=== PATIENT | male | born 1955 | race Caucasian/White ===

== ENCOUNTER → 2019-04-09 | Outpatient (CLI) | payer MEDICARE ==
--- NOTE | 2019-04-16 18:01 | Polysomnography ---
STUDY: INTERPRETATION of CPAP TITRATION POLYSOMNOGRAPHY. DATE OF STUDY: 04/09/2019 REFERRING PHYSICIAN: Koby Rubalcava MD INTERPRETING PHYSICIAN: Koby Rubalcava MD IMPRESSIONS: 1. Significant response to CPAP at 14 cm of water pressure, which resulted in significant reduction of respiratory distress index (RDI). 2. Oxygen desaturations improved with CPAP therapy. RECOMMENDATIONS: 1. CPAP pressure at 14 cm of water pressure with heated humidifier. 2. Avoid consumption of alcohol or sedatives before bedtime. 3. Weight reduction to ideal body weight. 4. Advise the patient that excessive daytime sleepiness could pose a danger to the patient and others while driving or operating heavy machinery, and to use caution until symptoms are treated and improved. 5. The patient to follow up with physician to discuss results of the study. Koby Rubalcava MD JKY/MODL /[id number] MTDD
== END ==
LOC: SLEEP 19:47
PROVIDERS: ATTEND Otolaryngology
DX: G47.33 Obstructive sleep apnea (adult) (pediatric) (principal)
CPT/HCPCS: 95811

== ENCOUNTER 2021-04-04 12:35 | Emergency (ER) | payer MEDICARE, OTHER ==
[~2021-04-04] VITALS: Ht 167.6 cm; Wt 74.8 kg
[2021-04-04 12:54] LABS: BASOPHILS # (AUTO) 0.1 (0.0-0.1); BASOPHILS % 0.9 % (0.0-1.0); EOSINOPHILS # (AUTO) 0.4 (0.0-0.4); EOSINOPHILS % 5.8 % (0.0-6.0); HEMOGLOBIN 15.4 g/dL (14.0-18.0); LYMPHOCYTES # (AUTO) 1.9 (1.0-3.2); LYMPHOCYTES % 24.6 % (18.0-39.1); MEAN CORPUSCULAR HEMOGLOBIN 31.7 pg (28-32); MEAN CORPUSCULAR HGB CONC 33.5 g/dL (31-35); MEAN CORPUSCULAR VOLUME 94.7 fL (81-99); MONOCYTES # (AUTO) 0.9 (0.2-0.8); MONOCYTES % 11.2 % (4.4-11.3); NEUTROPHILS # (AUTO) 4.3 (2.1-6.9); NEUTROPHILS % 56.5 % (38.7-80.0); PLATELET COUNT 293 x10e3/uL (140-360); RED BLOOD COUNT 4.86 x10e6/uL (4.3-5.7); RED CELL DISTRIBUTION WIDTH 13.2 % (11.7-14.4)
[2021-04-04] MEDS ORDERED: ASPIRIN 81 MG CHEW TAB PO ONE (13:00)
[2021-04-04 13:19] LABS: ALBUMIN 4.1 g/dL (3.5-5.0); ALBUMIN/GLOBULIN RATIO 1.3 (0.8-2.0); CALCIUM 9.2 mg/dL (8.4-10.2); CREATININE, SERUM 1.02 mg/dL (0.72-1.25)
[2021-04-04 13:26] LABS: CREATINE KINASE MB 0.7 ng/mL (0-5.0)
[2021-04-04 16:15] VITALS: BP 137/77
== END 2021-04-04 16:23 | disposition home or self-care (01) ==
LOC: ER 12:55
DX: R05 Cough (principal); J18.9 Pneumonia, unspecified organism; R94.31 Abnormal electrocardiogram [ECG] [EKG]
CPT/HCPCS: 36415; 71045; 80053; 82550; 82553; 84484; 85025; 99284; U0002

== ENCOUNTER → 2021-08-26 | Day surgery (SDC) | payer MEDICARE, OTHER ==
[2021-08-24 08:50] LABS: BASOPHILS # (AUTO) 0.1 (0.0-0.1); EOSINOPHILS # (AUTO) 0.4 (0.0-0.4); EOSINOPHILS % 4.5 % (0.0-6.0); HEMATOCRIT 44.5 % (38.2-49.6); HEMOGLOBIN 14.6 g/dL (14.0-18.0); LYMPHOCYTES # (AUTO) 2.1 (1.0-3.2); LYMPHOCYTES % 25.4 % (18.0-39.1); MEAN CORPUSCULAR HEMOGLOBIN 31.6 pg (28-32); MEAN CORPUSCULAR HGB CONC 32.8 g/dL (31-35); MEAN CORPUSCULAR VOLUME 96.3 fL (81-99); MONOCYTES # (AUTO) 0.7 (0.2-0.8); MONOCYTES % 8.1 % (4.4-11.3); PLATELET COUNT 291 x10e3/uL (140-360); RED BLOOD COUNT 4.62 x10e6/uL (4.3-5.7); RED CELL DISTRIBUTION WIDTH 12.2 % (11.7-14.4)
[~2021-08-26] MED LIST: BUPIVACAINE HCL 0.5% INJ 30 ML VIAL INJ ONE; DEXAMETHASONE SOD PHOS INJ 4 MG/ML SDV ONE; EPHEDRINE SULFATE INJ 50 MG/ML VIAL ONE; FENTANYL CITRATE/PF 100MCG/2 ML INJ ONE; GLYCOPYRROLATE INJ 0.2 MG/ML VIAL ONE; KETOROLAC TROMETHAMINE 30 MG/ML VIAL ONE; LIDOCAINE HCL 2% JELLY 5 ML TUBE ONE; LIDOCAINE HCL 2% LOCAL INJ 5 ML SDV VIAL INJ ONE; MIDAZOLAM HCL 2 MG/2 ML VIAL ONE; NEOSTIGMINE 1 MG/ML 10ML VIAL ONE; ONDANSETRON HCL INJ 2MG/ML 2ML 2 MG/ML VIAL ONE; POVIDONE IODINE 0.05% 0.05 % ML PO ONE; PROPOFOL IV EMULSION 10 MG/ML 20 ML VIAL ONE; ROCURONIUM BROMIDE 10 MG/ML 5ML VIAL IV ONE; SEVOFLURANE INHAL SOLN 250 ML PEN BTL ONE
[2021-08-26 08:40] VITALS: BP 139/77
== END | disposition home or self-care (01) ==
LOC: OR 05:20
PROVIDERS: ATTEND Podiatrist Foot & Ankle Surgery
DX: S86.012A Strain of left Achilles tendon, initial encounter (principal); G47.33 Obstructive sleep apnea (adult) (pediatric); R00.1 Bradycardia, unspecified; X58.XXXA Exposure to other specified factors, initial encounter; Z88.6 Allergy status to analgesic agent; Z01.810 Encounter for preprocedural cardiovascular examination; Z01.812 Encounter for preprocedural laboratory examination; Z01.818 Encounter for other preprocedural examination; Z20.822 Contact with and (suspected) exposure to COVID-19; Z86.16 Personal history of COVID-19
CPT/HCPCS: 36415; 71046; 85025; 93005; J0690; J1100; J1885; J2001; J2250; J2405; J2710; J3010; U0002

== ENCOUNTER 2021-11-18 07:58 | Outpatient (RCR) | payer OTHER | END 2021-11-20 | LOC: PT 07:58 | PROVIDERS: ATTEND Podiatrist Foot & Ankle Surgery | DX: S86.012A Strain of left Achilles tendon, initial encounter (principal) ==

== ENCOUNTER → 2021-12-21 | Outpatient (RCR) | payer OTHER | LOC: PT 11-22 06:32 | PROVIDERS: ATTEND Podiatrist Foot & Ankle Surgery | DX: S86.012A Strain of left Achilles tendon, initial encounter (principal) | CPT/HCPCS: 97139 ==

== ENCOUNTER 2022-03-29 07:56 | Observation (INO) | payer MEDICARE, OTHER ==
[~2022-03-29] VITALS: Ht 167.6 cm; Wt 74.8 kg
[~2022-03-29 07:56] MED LIST changes: -BUPIVACAINE HCL 0.5% INJ 30 ML VIAL INJ ONE; +CELECOXIB 200 MG CAP ONE; +DEXAMETHASONE SOD PHOS 10 MG/1 ML VIAL ONE; -DEXAMETHASONE SOD PHOS INJ 4 MG/ML SDV ONE; -EPHEDRINE SULFATE INJ 50 MG/ML VIAL ONE; -FENTANYL CITRATE/PF 100MCG/2 ML INJ ONE; +GABAPENTIN 300 MG CAP ONE; -GLYCOPYRROLATE INJ 0.2 MG/ML VIAL ONE; -KETOROLAC TROMETHAMINE 30 MG/ML VIAL ONE; -LIDOCAINE HCL 2% JELLY 5 ML TUBE ONE; -LIDOCAINE HCL 2% LOCAL INJ 5 ML SDV VIAL INJ ONE; -MIDAZOLAM HCL 2 MG/2 ML VIAL ONE; -NEOSTIGMINE 1 MG/ML 10ML VIAL ONE; -ONDANSETRON HCL INJ 2MG/ML 2ML 2 MG/ML VIAL ONE; -POVIDONE IODINE 0.05% 0.05 % ML PO ONE; -PROPOFOL IV EMULSION 10 MG/ML 20 ML VIAL ONE; -ROCURONIUM BROMIDE 10 MG/ML 5ML VIAL IV ONE; -SEVOFLURANE INHAL SOLN 250 ML PEN BTL ONE
[2022-03-29] MEDS ORDERED: ROPIVACAINE 246.25 MG, EPINEPHRINE HCL 1:1000 1ML 0.5 MG, CLONIDINE HCL 0.08 MG, KETORO... INJ ONE ×5 (08:00)
[2022-03-29] MEDS ORDERED: SODIUM CHLORIDE 0.9% 250ML 250 ML ONE (10:25)
[2022-03-29] MEDS ORDERED: Vancomycin IV 1,000 MG ONE (10:25)
[2022-03-29] MEDS ORDERED: TRANEXAMIC ACID 10 ML ONE ×2 (10:25→11:39)
[2022-03-29] MEDS ORDERED: ONDANSETRON HCL INJ 2MG/ML 2ML 2 MG/ML VIAL ONE ×2 (12:34→13:48)
[2022-03-29] MEDS ORDERED: LIDOCAINE HCL 2% LOCAL INJ 5 ML SDV VIAL INJ ONE (12:34)
[2022-03-29] MEDS ORDERED: EPHEDRINE SULFATE INJ 50 MG/ML VIAL ONE (12:34)
[2022-03-29] MEDS ORDERED: POVIDONE IODINE 0.05% 0.05 % ML PO ONE (12:34)
[2022-03-29] MEDS ORDERED: SEVOFLURANE INHAL SOLN 250 ML PEN BTL ONE (12:34)
[2022-03-29] MEDS ORDERED: ACETAMINOPHEN 1000 MG/100 ML IV ONE (12:34)
[2022-03-29] MEDS ORDERED: PROPOFOL IV EMULSION 10 MG/ML 20 ML VIAL ONE (12:34)
[2022-03-29] MEDS ORDERED: GLYCOPYRROLATE INJ 0.2 MG/ML VIAL ONE (12:34)
[2022-03-29] MEDS ORDERED: DIPHENHYDRAMINE HCL INJ 50 MG/ML VIAL IV PRN (12:45)
[2022-03-29] MEDS ORDERED: DOCUSATE SODIUM 100 MG CAP PO PRN (12:45)
[2022-03-29] MEDS ORDERED: SODIUM CHLORIDE 0.9% 1000ML 1,000 ML IV SCH (12:45)
[2022-03-29] MEDS ORDERED: HYDROCODONE/APAP 7.5MG-325MG 1 EA TAB PO PRN (12:45)
[2022-03-29] MEDS ORDERED: ONDANSETRON HCL INJ 2MG/ML 2ML 2 MG/ML VIAL IV PRN (12:45)
[2022-03-29] MEDS ORDERED: KETOROLAC TROMETHAMINE 30 MG/ML VIAL IV PRN (12:45)
[2022-03-29] MEDS ORDERED: ZOLPIDEM TARTRATE 5 MG TAB PO PRN (12:45)
[2022-03-29] MEDS ORDERED: HYDROCODONE/APAP 5MG-325MG TAB PO PRN (12:45)
[2022-03-29] MEDS ORDERED: ACETAMINOPHEN 650 MG SUPP PR PRN (12:45)
[2022-03-29] MEDS ORDERED: FENTANYL CITRATE/PF 100MCG/2 ML INJ ONE ×2 (13:09→13:15)
[2022-03-29] MEDS ORDERED: ROPIVACAINE 0.5% 5 MG/ML 30 ML SDV ONE (13:10)
[2022-03-29] MEDS ORDERED: MIDAZOLAM HCL 2 MG/2 ML VIAL ONE (13:15)
[2022-03-29] MEDS ORDERED: Morphine 4mg INJECTION 4 MG/ML INJ ONE (13:40)
[2022-03-29 15:00] VITALS: BP 126/72
[2022-03-29 16:02] VITALS: BP 126/72
[2022-03-29] MEDS ORDERED: CELECOXIB 200 MG CAP PO SCH (17:00)
[2022-03-29] MEDS ORDERED: ASPIRIN 325 MG TAB PO SCH (17:00)
[2022-03-29] MEDS ORDERED: NO HOME MEDICATIONS (18:29)
[2022-03-30] MEDS ORDERED: ACETAMINOPHEN 1000 MG/100 ML IV PRN (12:45)
== END 2022-03-29 18:50 | disposition home or self-care (01) ==
LOC: OR 07:56 → PACU V 12:50 → MED/SURG 14:37
PROVIDERS: ADMIT Specialist; ATTEND Specialist
DX: M17.12 Unilateral primary osteoarthritis, left knee (principal); G47.33 Obstructive sleep apnea (adult) (pediatric); Z86.16 Personal history of COVID-19; Z20.822 Contact with and (suspected) exposure to COVID-19; Z01.818 Encounter for other preprocedural examination; Z88.5 Allergy status to narcotic agent
CPT/HCPCS: 0223U; 36415; 86850; 86900; 86920; 93005; 94799; C1713; G0378; J0171; J0690; J1100; J1885; J2001; J2250; J2270; J2405; J2795; J3010; J3370; J7050

== ENCOUNTER 2022-05-30 09:53 | Outpatient (RCR) | payer MEDICARE, OTHER ==
[~2022-05-30 09:53] MED LIST changes: -CELECOXIB 200 MG CAP ONE; -DEXAMETHASONE SOD PHOS 10 MG/1 ML VIAL ONE; -GABAPENTIN 300 MG CAP ONE; +NO HOME MEDICATIONS
== END 2022-06-22 ==
LOC: PT 09:53
PROVIDERS: ATTEND Specialist
DX: Z47.1 Aftercare following joint replacement surgery (principal); Z96.652 Presence of left artificial knee joint